=== PATIENT | male | born 2000 | race Caucasian/White ===

== ENCOUNTER 2020-09-28 11:35 | Emergency (ER) | payer OTHER, SELFPAY ==
[2020-09-28 11:41] VITALS: BP 175/77; PULSE 87; RESP 18; TEMP 36.3; O2SAT 100
--- NOTE | 2020-09-28 13:59 | PC.NURSE ---
not in WR
--- NOTE | 2020-09-28 14:13 | PC.NURSE ---
Has been called twice with no answer; not in WR; left without notification.
== END 2020-09-28 14:13 | disposition left against medical advice (07) ==
DX: K08.89 Other specified disorders of teeth and supporting structures (principal)
CPT/HCPCS: 99199

== ENCOUNTER 2024-04-08 11:19 | Emergency (ER) | payer OTHER, SELFPAY ==
--- NOTE | ~2024-04-08 | XR_ITS ---
EXAMINATION: XR chest 2V 04/08/2024 12:28 INDICATION: Painful respiration PROCEDURE: 2 view chest COMPARISON: 08/07/2004 FINDINGS: The lungs are clear. The cardiomediastinal silhouette is within normal limits. There are no pleural effusions. There is no pneumothorax suspected. IMPRESSION: 1: NO ACUTE CARDIOPULMONARY DISEASE. Reviewed, dictated and finalized at location B.
[2024-04-08 11:20] VITALS: BP 152/98; PULSE 83; RESP 16; TEMP 36.6; O2SAT 100
--- NOTE | 2024-04-08 11:23 | ED.URI ---
HPI - URI/Sore Throat General Chief Complaint: Upper Respiratory Infection Stated Complaint: congestion Time Seen by Provider: 04/08/24 11:23 Source: patient Mode of arrival: ambulatory Limitations: no limitations History of Present Illness HPI Narrative: This is a 24-year-old male patient no significant past medical history presents to the emergency department with 5 day history of cough congestion mild difficulty breathing new onset right posterior back pain present when he takes a deep breath. Patient states that his symptoms started 5 days ago he initially attributed this to allergy symptoms only. Throughout the several days since he started taking cough and congestion medication from the [employer] store that does help to use his cough by 1 wears on his cough returns pretty significantly. Today patient came to be evaluated because of the new onset pain with taking a deep breath in his right back area. No history of asthma, pneumonia or bronchitis. patient believes he had a fever initially but did not check his temperature. Related Data Allergies Allergy/AdvReac Type Severity Reaction Status Date / Time No Known Allergies Allergy Verified 04/08/24 11:28 Review of Systems Review of Systems: All systems reviewed & are unremarkable except as noted in HPI and below Exam Narrative: GENERAL: Periodic cough, pauses to take deep breath, no respiratory distress HEAD: Normocephalic, atraumatic. ENT:? Mucous membranes moist. CHEST: End inspiratory and end expiratory wheeze noted, mild crackles right lower lobe. HEART: Regular rate and rhythm. ? Normal peripheral pulses. ABDOMEN: Soft, nontender, nondistended. Obese. EXTREMITIES: Normal range of motion. No peripheral edema. SKIN: Warm dry normal color NEURO: Alert and oriented x3. PSYCH: Normal mood and affect Course Course Emergency Course: Ordered 2 view CXR, Covid/flu/RSV, Duoneb and steroids. Vital Signs Vital signs: Vital Signs Temperature 36.6 C 04/08/24 11:20 Pulse Rate 83 04/08/24 11:20 Respiratory Rate 16 04/08/24 11:20 Blood Pressure 152/98 H 04/08/24 11:20 Pulse Oximetry 100 04/08/24 11:20 Temperature 36.6 C 04/08/24 11:20 Pulse Rate 76 04/08/24 12:14 Respiratory Rate 18 04/08/24 12:14 Blood Pressure 152/98 H 04/08/24 11:20 Pulse Oximetry 100 04/08/24 11:20 Oxygen Delivery Room Air 04/08/24 11:27 MDM - URI/Sore Throat MDM Narrative Medical decision making narrative: this is a previously healthy 24-year-old male patient presents with cough congestion new onset posterior right back /lung pain with deep breaths. No leg pain history of PV she clotting disorders in past or family history. Family history of bronchitis is positive. Patient initially felt febrile I will but no longer does simply cane to the emergency department because of the pain onset today. He is obese but otherwise healthy. No prior history of asthma. Clinical exam shows inspiratory and expiratory wheeze. COVID/flu/ RSV negative, DuoNeb given steroids started prescription for oral steroids, albuterol inhaler sent to preferred pharmacy. Patient already taking cough medicine and he was informed to continue to take that. Differential Diagnosis Differential diagnosis: Likely upper respiratory infection, viral infection, bronchitis, influenza and other ( Pneumonia) Lab Data Labs: Lab Results 04/08/24 Range/Units 12:00 Influenza A (RT-PCR) Negative (Negative) Influenza B (RT-PCR) Negative (Negative) RSV (RT-PCR) Negative (Negative) SARS-CoV-2 RNA (RT-PCR) Negative (Negative) Discharge Plan Discharge Clinical Impression: Acute bronchitis Patient Disposition: Home, Self-Care Condition: Stable Instructions: Antibiotic Form, Acute Bronchitis (ED) Additional Instructions: Continue taking cough medication as needed and prescriptions as prescribed. This is viral in nature and an antibiotic is not needed
[2024-04-08] MEDS: IPRATROPIUM 0.5 MG/ALBUTEROL SULFATE 2.5 MG AMPUL.NEB 3 ML INHALATION (12:04)
[2024-04-08 12:05] VITALS: PULSE 75; RESP 18
[2024-04-08] MEDS: predniSONE 20 MG TABLET 80 MG PO (12:05)
[2024-04-08 12:14] VITALS: PULSE 76; RESP 18
[2024-04-08 12:43] LABS: Influenza A QL RT-PCR Negative (Negative); Influenza B QL RT-PCR Negative (Negative); RSV RNA, RT-PCR Negative (Negative); SARS-CoV-2 RNA PCR Negative (Negative)
== END 2024-04-08 13:14 | disposition home or self-care (01) ==
PROVIDERS: Emergency Provider Nurse Practitioner
DX: J20.9 Acute bronchitis, unspecified (principal); Z20.822 Contact with and (suspected) exposure to COVID-19
CPT/HCPCS: 71046; 87637; 94640; 99283; J7512

== ENCOUNTER 2025-03-19 09:30 | Outpatient (CLI) | payer OTHER, SELFPAY ==
--- NOTE | ~2025-03-19 | XR_ITS ---
Examination: XR chest 2V Clinical History: Wheezing, daily marijuana user, Comparison: 04/08/2024 Technique: PA and Lateral Findings: Cardiomediastinal silhouette normal size and configuration. Lungs clear. No acute bony abnormality. IMPRESSION: 1. No acute cardiopulmonary findings. Reviewed, dictated and finalized at location R.
--- OUTSIDE RECORDS SUMMARY | 2025-03-19 10:15 | XMS_ITS | Clinical Summary ---
Author Organization [facility] Address [address] [place] [id number] Care Team Providers Care Consumer Affairs Specialist Name Role Phone Unavailable Primary Care Provider Unavailabl e Social History Tobacco Use Types Packs/Day Years Used Date Smoking Tobacco: Never Assessed Sex and Gender Information Value Date Recorded Sex Assigned at Not on file Legal Sex Male 5:16 PM CDT Gender Identity Not on file Sexual Orientation Not on file Plan of Treatment Health Maintenance Due Date Last Done Comments Annual Physical 2003 HPV Vaccines (1 - Male 3-dos e series) 2015 Hepatitis C 2018 DTaP, Tdap and Td Vaccines ( 1 - Tdap) 2019 Hepatitis B Vaccines (1 of 3 - 19+ 3-dose series) 2019 COVID-19 Vaccine (1 - 2023-2 5 season) 2025 Meningococcal B Vaccine Aged Out No l onger eligible based on patient's age to complete this topic Meningococcal Vaccine Aged Out No hakeem brandon eligible based on patient's age to complete this topic Pneumococcal Vaccine: Pediat rics (0 to 5 Years) and At-Risk Patients (6 to 49 Years) Aged Out No longer eligible b ased on patient's age to complete this topic RSV Immunizations Under 20 Months Aged Out No longer eligible based on patient's age to complete this topic
== END 2025-03-19 09:31 | disposition home or self-care (01) ==
DX: R06.2 Wheezing (principal); F12.90 Cannabis use, unspecified, uncomplicated
CPT/HCPCS: 71046